=== PATIENT | male | born 1985 | race Caucasian/White ===

== ENCOUNTER 2017-01-25 00:52 | Inpatient (IN) | payer OTHER ==
[~2017-01-25] VITALS: Ht 160 cm; Wt 53.5 kg
[2017-01-25] MEDS ORDERED: LOPERAMIDE HCL 2 MG CAPSULE PO PRN ×2 (17:30)
[2017-01-25] MEDS ORDERED: HYDROXYZINE PAMOATE 25 MG CAPSULE PO PRN (17:30)
[2017-01-25] MEDS ORDERED: MAG HYDROX/AL HYDROX/SIMETH 30 ML LIQUID UDC PO PRN (17:30)
[2017-01-25] MEDS ORDERED: ONDANSETRON ODT 4 MG TAB.RAPDIS SL PRN (17:30)
[2017-01-25] MEDS ORDERED: ONDANSETRON 4 MG/2 ML VIAL IM PRN (17:30)
[2017-01-25] MEDS ORDERED: LORAZEPAM 1 MG TABLET PO PRN ×3 (17:30→18:30)
[2017-01-25] MEDS ORDERED: ACETAMINOPHEN 325 MG TABLET PO PRN (17:30)
[2017-01-25] MEDS ORDERED: DICYCLOMINE HCL 20 MG TABLET PO PRN (17:30)
[2017-01-25] MEDS ORDERED: CLONIDINE HCL 0.1 MG TABLET PO PRN (17:30)
[2017-01-25] MEDS ORDERED: diphenhydrAMINE 50 MG CAPSULE PO PRN (17:30)
[2017-01-25] MEDS ORDERED: BUPRENORPHINE HCL 2 MG TAB.SUBL SL PRN (17:30)
[2017-01-25 17:54] VITALS: BP 117/67
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
[2017-01-25] MEDS ORDERED: AMIT75TA13 PO (18:19)
[2017-01-25] MEDS ORDERED: BUPR300T54 PO (18:19)
[2017-01-25] MEDS ORDERED: ZALE10CA28 PO (18:19)
[2017-01-25] MEDS ORDERED: HYDR-3980 PO (18:19)
[2017-01-25] MEDS ORDERED: LORA1TAB PO (18:19)
[2017-01-25] MEDS ORDERED: METH-406 PO (18:19)
[2017-01-25] MEDS ORDERED: LORAZEPAM 2 MG/1 ML VIAL IM PRN (18:30)
--- NOTE | 2017-01-25 18:34 | NUR ---
SKIN CHECK DONE ON UNIT. A MILD RASH TO TORSO AND VAISHALI NOTED. HE STATES HE THINKS IT IS FROM THE [place]. NO OPEN WOUNDS NOTED. Addendum: 01/25/17 at 1840 by JESUS LINDO RN PT USES A SINGLE POINT CANE FOR CHRONIC LOWER BACK PAIN AND SCIATICA PAIN. HIS GAIT IS STEADY.
[2017-01-25 18:46] LABS: BASOPHILS # (AUTO) 0.1 K/uL (0.0-8.0); BASOPHILS % (AUTO) 0.6 % (0.0-2.0); EOSINOPHILS # (AUTO) 0.2 K/uL (0.0-0.7); EOSINOPHILS % (AUTO) 2.1 % (0.0-7.0); HEMATOCRIT 48.9 % (40-50); HEMOGLOBIN 16.4 G/DL (14.0-18.0); LYMPHOCYTES # (AUTO) 3.2 K/UL (0.8-4.8); LYMPHOCYTES % (AUTO) 36.8 % (20.5-51.5); MEAN CORPUSCULAR HGB CONC 34 g/dL (32.0-37.0); MEAN CORPUSCULAR VOLUME 101.2 FL (82.0-92.0); MONOCYTES # (AUTO) 0.3 K/UL (0.1-1.30); MONOCYTES % (AUTO) 3.9 % (0.0-11.0); NEUTROPHILS # (AUTO) 4.8 K/UL (1.8-8.9); NEUTROPHILS % (AUTO) 56.6 % (38.5-71.5); PLATELET COUNT (AUTO) 196 K/UL (150-450); RED BLOOD CELL COUNT(AUTO) 4.83 MIL/UL (4.7-6.1); WHITE BLOOD COUNT (AUTO) 8.6 K/UL (4.0-11.2)
[2017-01-25 18:51] LABS: *AMPHETAMINE, URINE NEGATIVE (NEGATIVE); *BARBITURATE, URINE NEGATIVE (NEGATIVE); *CANNABINOID, URINE NEGATIVE (NEGATIVE); *COCCAINE, URINE NEGATIVE (NEGATIVE); *OPIATE, URINE POSITIVE (NEGATIVE); *PHENCYCLIDINE SCREEN,URINE NEGATIVE (NEGATIVE)
[2017-01-25 18:54] LABS: ALANINE AMINOTRANSFERASE 19 U/L (16-63); ALKALINE PHOSPHATASE 82 U/L (50-136); ASPARTATE AMINOTRANSFERASE 14 U/L (15-37); BILIRUBIN,TOTAL 0.2 mg/dL (0.2-1.0); CARBON DIOXIDE 27 mmol/L (21-32); CHLORIDE 104 mmol/L (98-107); CREATININE 0.9 mg/dL (0.6-1.3); GLUCOSE 120 mg/dL (74-106); MAGNESIUM 1.9 mg/dL (1.8-2.4); POTASSIUM 3.7 mmol/L (3.5-5.1); TOTAL PROTEIN, SERUM 7.6 g/dL (6.4-8.2); UREA NITROGEN, BLOOD 10 mg/dL (7-18)
[2017-01-25 19:00] LABS: ETHANOL < 3 MG/DL (0-0)
--- NOTE | 2017-01-25 19:00 | NUR ---
Start of Shift Patient Received. Patient is in activities room participating in group activities. Patient is a 31 year old male from [place] arriving to receive treatment for his Opioid Dependence. Per endorsement, verbalizes no known allergies, height noted to 53 and weight of 118. Vitals of 117/67, 90, 98.4, 16, 96%, 8/10. Past medical history noted as Anxiety, Depression, Insomnia, and Chronic Back pain. Home medications reconciled. No history of Seizures. This is patients first time in Treatment. Patient is ambulatory assistance of a cane. All needs attended to promptly. Will continue with admission assessment when patient returns from group meeting.
--- NOTE | 2017-01-25 19:45 | NUR ---
Admission Patient is a 31 year old male from [place], admitted to [facility] to receive treatment for his Opioid and Benzo Dependence. Body Check and skin check rendered prior to arrival to unit. Skin is noted intact. Patient is able to provide Urine drug screen upon arrival to unit. Patient verbalizes no known allergies. Height noted as 53 and weight noted as 118lbs. Patient is ambulatory with use of a cane. Patient verbalizes I alternate the use of the cane either though the week leg is my left leg. Patient is very cooperative with admission assessment and states I just want to be normal again. I dont want to be on these medications anymore. Breathing is even and non labored with no signs of SOB. Vital signs rendered and noted as 108/65, 86, 18, 98.6, 10/10 pain due to left leg. Patient describes pain as sharp and on fire. Left leg noted with mild weakness and right arm noted with mild weakness. No edema noted to BUE or to BLE. Lung sounds clear with no cough noted. Bowel sounds are active in all 4 quadrants. Patient verbalizes past medical history as Anxiety, Depression, insomnia, and Chronic Back Pain and lower left leg pain due to Work Accident. All home medications reconciled. No history of Seizure noted. Patient denies any suicidal ideations. He describes his usage as: 1. Opioids- [place], for the past 5 years, 10-325mg PO 6-8 tabs per day, with last dose 01/26/17 taking 4 tabs for the day. 2. Ativan, for 1 year, 1mg 3 tabs PO per week, with last dose 01/24/17 taking 1mg 3. Sonatas, for 1 year, 10mg PO QHS 2 per week, with last dose 01/24/17 Patient states "a lot of pain, headaches, nausea, vomiting, itching, stomach cramps, diarrhea" Patient lives at home in [place] and is currently unemployed. Admission CIWA noted to be 3 and COWS 7. All information relayed to Dr. Milton. Patient noted with 2100 Dose of Ativan 2mgn for increased anxiety as per MD. PRN medications available for increased signs and symptoms. Will administer medications accordingly. Will continue plan of acre as ordered.
[2017-01-25 20:36] VITALS: BP 108/65
[2017-01-25] MEDS ORDERED: LORAZEPAM 1 MG TABLET PO ONE (21:00)
[2017-01-25] MEDS: KETOROLAC TROMETHAMINE 30 MG INJ IM PRN (21:02)
--- NOTE | 2017-01-25 21:10 | NUR ---
PRN Medication Administration Patient verbalizing increased anxiety and pain 10/10 due to left leg. New order obtained from MD for PRN Toradol injection. Routine dose of Ativan 2mg as well as PRN Toradol administered as per order. Will continue to monitor.
[2017-01-25] MEDS ORDERED: KETOROLAC TROMETHAMINE 30 MG INJ ONE (21:11)
--- NOTE | 2017-01-25 22:00 | NUR ---
PRN Medication Reassessment Patient is in bed, awake, alert and verbally responsive. Patient is able to verbalize The pain has subsided to a tolerable 3/10. PRN Toradol noted to be effective in minimizing pain. Patient is able to verbalize PRN Ativan 2mg was effective in minimizing anxiety as well. Will continue to monitor.
[2017-01-26] MEDS ORDERED: NICOTINE POLACRILEX 4 MG GUM-PK OF TEN BC PRN (00:15)
[2017-01-26] MEDS ORDERED: NICOTINE 14 MG/24HR PATCH TD PRN (00:15)
[2017-01-26 00:29] VITALS: BP 104/57
[2017-01-26 04:09] VITALS: BP 100/59
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
--- NOTE | 2017-01-26 07:31 | NUR ---
End of Shift Patient is in bed sleeping. Breathing even and non labored. Patient is a 31 year old male admitted on 01/25/17 for Opioid Dependence under the care of Dr. Milton. Patient is to start a 5 day Subutex taper this morning at 0900. No known allergies, Full Code, Following a regular diet, placed on fall precautions, and skin noted intact. Past medical history verbalized as Anxiety, Depression, Insomnia, Chronic back pain with left sciatica, Gerd, and history of Hemorrhoids. Patient was given PRN Toradol injection with medication noted to be effective. Last noted CIWA 3. All needs attended to promptly. Will endorse to continue to monitor.
[2017-01-26 08:00] VITALS: BP 106/61
[2017-01-26] MEDS ORDERED: TUBERCULIN,PURIF.PROT.DERIV. 5 TU/0.1 ML TEST ID ONE (09:00)
[2017-01-26] MEDS: FAMOTIDINE 20 MG TABLET PO SCH (11:22)
[2017-01-26] MEDS: BUPRENORPHINE HCL 2 MG TAB.SUBL SL SCH ×4 (11:23→21:19)
[2017-01-26] MEDS: GABAPENTIN 300 MG CAPSULE PO SCH ×2 (11:23→21:17)
[2017-01-26] MEDS: IBUPROFEN 600 MG TABLET PO PRN ×2 (11:23→21:17)
--- NOTE | 2017-01-26 11:25 | NUR ---
PRN Medication Administration Pt c/o Moderated sciatic pain radiating from LLE to lower back with 5/10 pain; PRN Motrin 600mg given as ordered. Will reassess in 1H.
[2017-01-26 12:00] VITALS: BP 106/61
--- NOTE | 2017-01-26 12:20 | NUR ---
Reassessment Pt is resting in room eating lunch and states that pain decreased to 2/10 pain; Motrin is effective. Will cont. to monitor the pt.
[2017-01-26] MEDS: METHOCARBAMOL 750 MG TABLET PO PRN (13:27)
--- NOTE | 2017-01-26 13:30 | NUR ---
PRN Medication Administration Pt is in [address] getting ready to go smoke and c/o muscle stiffness in his lower back with discomfort; PRN Robaxin 750mg given as ordered. Will reassess in 1H.
--- NOTE | 2017-01-26 14:30 | NUR ---
Reassessment Pt is in room resting in bed and states that his muscle tension is relieved and he is more comfortable; Robaxin is effective. Will cont. to monitor the pt.
[2017-01-26 16:00] VITALS: BP 109/64
[2017-01-26] MEDS: MIRALAX 17 GM POWD.PACK PO PRN (17:07)
[2017-01-26] MEDS: KETOROLAC TROMETHAMINE 30 MG INJ IM PRN (17:10)
--- NOTE | 2017-01-26 17:10 | NUR ---
PRN Medication Administration Pt is getting ready to go to cafeteria for dinner and c/o severe sciatic pain 9/10 in LLE; PRN Toradol 30mg inj given as ordered. Will reassess in 1H.
--- NOTE | 2017-01-26 18:10 | NUR ---
Reassessment Pt returns from dinner and smoking break and denies pain in LLE; Toradol is effective. Will cont. to monitor the pt.
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
[2017-01-26 20:00] VITALS: BP 105/61
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
[2017-01-26] MEDS: AMITRIPTYLINE HCL 50 MG TABLET PO SCH (21:18)
[2017-01-26] MEDS: MAGNESIUM HYDROXIDE 30 ML LIQUID UDC PO PRN (21:19)
--- NOTE | 2017-01-26 21:19 | NUR ---
PRN Milk of Magnesia Px complained of constipation for 4 days. MOM 30 ml given PO as PRN med. We'll continue to monitor.
--- NOTE | 2017-01-26 21:19 | NUR ---
PRN Motrin Px complained of LBP radiating to LLE 9/10. With standing orders of Gabapentin and Subutex, Motrin 600 mg/tab, 1 tab given PO as PRN med. We'll continue to monitor.
--- NOTE | 2017-01-26 22:20 | NUR ---
Reassessment of pain Px verbalized the pain lessened from 9/10 to 7/10 but still complains for it. We'll continue to monitor.
[2017-01-27] VITALS: BP 106/69
--- NOTE | 2017-01-27 | NUR ---
COWS and CIWA deferred COWS and CIWA deferred due to px is sleeping, to assess if the px is awake per doctor's order. We'll continue to monitor.
[2017-01-27 04:00] VITALS: BP 102/61
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
[2017-01-27 08:00] VITALS: BP 96/62
[2017-01-27] MEDS: buPROPion XL 150 MG TAB.SR.24H PO SCH (09:56)
[2017-01-27] MEDS: BUPRENORPHINE HCL 2 MG TAB.SUBL SL SCH ×3 (09:57→21:15)
[2017-01-27] MEDS: FAMOTIDINE 20 MG TABLET PO SCH (09:57)
[2017-01-27] MEDS: GABAPENTIN 300 MG CAPSULE PO SCH ×3 (09:57→21:15)
[2017-01-27] MEDS: KETOROLAC TROMETHAMINE 30 MG INJ IM PRN (09:58)
--- NOTE | 2017-01-27 09:58 | NUR ---
PRN Medication Administration Pt c/o no BM x 4 days; PRN Miralax given ast ordered and Dr. Milton is aware. Will cont. to monitor the pt. Addendum: 01/27/17 at 1550 by ALEXIA LARSEN RN Pt c/o sciatic pain 12/22 in LLE; PRN Toradol 30mg inj given as ordered. Will reassess in 1H.
[2017-01-27] MEDS: MIRALAX 17 GM POWD.PACK PO PRN (10:19)
--- NOTE | 2017-01-27 11:00 | NUR ---
Reassessment Pt is in room relaxing and pain 0/10, no BM yet flatus is present at time. Will cont. to monitor the pt.
[2017-01-27 11:07] LABS: HEPATITIS B SURFACE AG Negative (Negative)
[2017-01-27 12:00] VITALS: BP 112/66
[2017-01-27 16:00] VITALS: BP 131/75
[2017-01-27] MEDS: BACLOFEN 10 MG TABLET PO SCH ×2 (16:45→21:14)
[2017-01-27] MEDS: DOCUSATE SODIUM 250 MG CAPSULE PO SCH ×2 (16:46→21:14)
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
[2017-01-27 20:00] VITALS: BP 134/86
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
--- NOTE | 2017-01-27 21:14 | NUR ---
PRN Robaxin, Colace and MOM Px complained of pain on both shoulders, low back and LLE 7/10 and constipation for 5 days already. Robaxin 750 mg/tab, 1 tab; Milk of Magnesia 30 ml; Colace 250mg/cap, 1 cap given PO as PRN meds. We'll continue to monitor.
[2017-01-27] MEDS: MAGNESIUM HYDROXIDE 30 ML LIQUID UDC PO PRN (21:15)
[2017-01-27] MEDS: AMITRIPTYLINE HCL 50 MG TABLET PO SCH (21:15)
[2017-01-27] MEDS: METHOCARBAMOL 750 MG TABLET PO PRN (21:15)
--- NOTE | 2017-01-27 22:15 | NUR ---
Pain reassessment Px verbalized that the pain decreased to 5/10. NO BM yet as of the moment. We'll continue to monitor.
[2017-01-28] VITALS: BP 122/74
--- NOTE | 2017-01-28 | NUR ---
COWS and CIWA deferred COWS and CIWA deferred due to the px is sleeping, to be assess if the px is awake per doctor's order. We'll continue to monitor.
[2017-01-28 04:00] VITALS: BP 110/69
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
--- NOTE | 2017-01-28 07:27 | NUR ---
Start of Shift Notes: Received patient in his room. Alert and verbally responsive. Oriented x 4. Easily arousable when his name is called. No changes in LOC noted. Respirations even and unlabored. No SOB noted. Skin warm and dry to touch. Abdomen soft and non-distended. BS (+) in all 4 quadrants. No complains of N/V/D or constipation noted. Bladder non-distended. No complains of dysuria noted. Voids independently. Ambulatory ad ji with steady gait. Patient is a 31 year old male admitted for opiate and BZO dependence who was placed on a 5-day Subutex taper as ordered. No adverse reactions noted. Prior to admission, patient was using 6-8 tabs of [place] 10-325mg PO, 1 mg of Ativan 3x/wk, 10 mg PO QHS Sonatas. NKA. FULL CODE. Regular diet. On fall and seizure precautions. Has past medical hx of anxiety, depression, insomonia, chronic back pain with sciatica. On fall and seizure precautions. Educated patient on his current plan of care for the day and his medication regimen. Encouraged oral fluid intake and encouraged group participation to learn new skills to prevent relapse. Will continue to monitor closely.
[2017-01-28 08:00] VITALS: BP 108/61
[2017-01-28] MEDS ORDERED: BUPRENORPHINE HCL 2 MG TAB.SUBL SL SCH ×2 (09:00→15:00)
[2017-01-28] MEDS: BACLOFEN 10 MG TABLET PO SCH (09:03)
[2017-01-28] MEDS: GABAPENTIN 300 MG CAPSULE PO SCH (09:03)
[2017-01-28] MEDS: FAMOTIDINE 20 MG TABLET PO SCH (09:03)
--- NOTE | 2017-01-28 09:03 | NUR ---
Toradol 30 mg IM given: Patient noted with complain of 9/10 generalized pain related to withdrawal symptoms and sciatica. Non-pharmacological interventions were ineffective. Medicated patient with Toradol 30 mg IM as ordered to patient's left deltoid. Will monitor for effectiveness.
[2017-01-28] MEDS: KETOROLAC TROMETHAMINE 30 MG INJ IM PRN (09:04)
[2017-01-28] MEDS: buPROPion XL 150 MG TAB.SR.24H PO SCH (09:04)
--- NOTE | 2017-01-28 09:33 | NUR ---
Re-assessment: Per patient, PRN Toradol was effective in reducing pain. PL 4/10.
--- NOTE | 2017-01-28 11:30 | NUR ---
MD Communication: Dr. Milton informed of patient's complains of constipation. Per MD, he will enter in orders. Also, MD modified patient's Subutex taper today due to s/s of withdrawal.
[2017-01-28 12:00] VITALS: BP 122/65
[2017-01-28] MEDS: BUPRENORPHINE HCL 2 MG TAB.SUBL SL SCH ×3 (12:56→21:00)
[2017-01-28] MEDS: PSYLLIUM SEED PACKET PO SCH (12:58)
[2017-01-28] MEDS ORDERED: NAPROXEN 500 MG TABLET PO ONE (13:00)
[2017-01-28] MEDS ORDERED: MAGNESIUM CITRATE 296 ML BOTTLE PO ONE (13:00)
--- NOTE | 2017-01-28 13:03 | NUR ---
OT Metamucil/Mag Citrate/Naproxen PO given: Orders received for the above meds due to patient's complain of constipation. Education provided. Will monitor for effectiveness.
[2017-01-28] MEDS: ACETAMINOPHEN 325 MG TABLET PO SCH ×2 (14:07→20:58)
[2017-01-28] MEDS: BACLOFEN 20 MG TABLET PO SCH ×2 (14:08→20:58)
[2017-01-28] MEDS: GABAPENTIN 400 MG CAPSULE PO SCH ×2 (14:08→20:58)
[2017-01-28 16:00] VITALS: BP 125/88
--- NOTE | 2017-01-28 16:27 | NUR ---
TRINITY/MAXIMILIANO Deferred: Patient is seen laying in bed with eyes closed. Breathing even and unlabored. No SOB noted. TRINITY/CIJEREMY Deferred at this time. Addendum: 01/28/17 at 1627 by BERNADINE HAMMER LVN Amended: Links added.
--- NOTE | 2017-01-28 17:55 | NUR ---
Subutex 2 mg SL at 1700 held: Patient is seen laying in bed with eyes closed. Breathing even and unlabored. Subutex 2 mg SL held at this time.
--- NOTE | 2017-01-28 18:50 | NUR ---
End of Shift Notes: Patient continues to be on a modified 5-day Subutex taper as ordered. No adverse reactions noted. VS monitored closely. No significant abnormalities noted. Withdrawal symptoms were closely monitored. Initial COWS 7/CIWA 2, patient presented with body aches, anxiety, fatigue and gross tremors. Medicated patient with Toradol 30 mg IM as ordered for 9/10 pain with help after 30 minutes. Last COWS 4/CIWA 1 at 1200. COWS/CIWA at 1600 deferred due to patient was sleeping. Subutex 2 mg SL at 1700 held. Complained of constipation during the shift. MD Milton made aware. Medicated patient with Metamucil, Mag Citrate as ordered with results pending. Patient participated in group and activities despite his withdrawal symptoms. Encouraged oral fluid intake to aid in the detox process. All needs met and attended. Will continue to monitor.
[2017-01-28 20:00] VITALS: BP 111/70
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
[2017-01-28] MEDS: DOCUSATE SODIUM 100 MG CAPSULE PO SCH (20:58)
[2017-01-28] MEDS: NAPROXEN 500 MG TABLET PO SCH (20:58)
[2017-01-28] MEDS: AMITRIPTYLINE HCL 50 MG TABLET PO SCH (20:59)
[2017-01-28] MEDS: MAGNESIUM HYDROXIDE 30 ML LIQUID UDC PO PRN (21:00)
--- NOTE | 2017-01-28 21:00 | NUR ---
PRN Milk of Magnesia Px pass BM today in AM but small amount. Px is constipated for more than 5 days. Milk of Magnesia 30 cc given PO as PRN med. We'll continue to monitor.
[2017-01-28] MEDS ORDERED: HYDROCORTISONE 1% CREAM 30 GM TUBE TP ONE ×2 (22:15→22:35)
--- NOTE | 2017-01-28 22:15 | NUR ---
PRN Hydrocortisone cream and Vistaril Px complained of insect-like bite lump on his anterior forearm, characterized with redness and tenderness. Dr. Milton ordered Hydrocortisone cream to apply PRN BID. Vistaril 25mg/tab, 1 tab given PO as PRN med. We'll continue to monitor.
[2017-01-29] VITALS: BP 116/67
--- NOTE | 2017-01-29 04:00 | NUR ---
VS refused Px refused the VS taking at this time. Respirations are even and unlabored at 13 cpm. We'll continue to monitor.
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
--- NOTE | 2017-01-29 07:49 | NUR ---
BEGINNING OF SHIFT Patient endorsement report received from mortgage loan funder nurse, all pertinent information discussed. Patient is a 31 year old Male admitted on: 01/25/2017 with admitting Dx:Opiate /BZO dependence, And substance use of:sonatas. Patient currently under close observation, continues on 5 day Subutex taper as ordered, and is scheduled to begin day 4 of taper. Per mortgage loan funder patient slept for 6 hours, received PRN: Motrin, Naproxen and Tylenol. Patient with last ciwa score of: 3 and last cow score of: 6. Patient received awake, alert and oriented x4, patient educated regarding plan of care and medication regimen for the day with good verbal understanding. Safety measure sin place. call light kept with in reach, will continue to monitor.
[2017-01-29 08:15] VITALS: BP 103/67
[2017-01-29] MEDS: NAPROXEN 500 MG TABLET PO SCH ×2 (08:45→21:09)
[2017-01-29] MEDS: BACLOFEN 20 MG TABLET PO SCH ×3 (08:45→21:09)
[2017-01-29] MEDS: GABAPENTIN 400 MG CAPSULE PO SCH ×3 (08:45→21:09)
[2017-01-29] MEDS: ACETAMINOPHEN 325 MG TABLET PO SCH ×3 (08:45→21:09)
[2017-01-29] MEDS: FAMOTIDINE 20 MG TABLET PO SCH (08:46)
[2017-01-29] MEDS: BUPRENORPHINE HCL 2 MG TAB.SUBL SL SCH ×3 (08:46→21:09)
[2017-01-29] MEDS: buPROPion XL 150 MG TAB.SR.24H PO SCH (08:46)
--- NOTE | 2017-01-29 08:49 | NUR ---
ADMINISTRATION OF PNA/FLU VACCINE Patient consented for pneumo vaccine and flu vaccine. administered pnemovaccine to left deltoid, and flu vaccine to right deltoid, injections well tolerated, will continue to monitor.
[2017-01-29] MEDS: DOCUSATE SODIUM 100 MG CAPSULE PO SCH ×2 (08:51→21:09)
[2017-01-29] MEDS: PSYLLIUM SEED PACKET PO SCH (08:51)
[2017-01-29] MEDS ORDERED: INFLUENZA VACCINE 2017-2018 0.5 ML DISP.SYRIN IM ONE (09:00)
[2017-01-29] MEDS ORDERED: PNEUMOCOCCAL 23-VAL P-SAC VAC 0.5 ML VIAL IM ONE (09:00)
[2017-01-29] MEDS ORDERED: HYDROCORTISONE 1% CREAM 30 GM TUBE TP PRN (09:46)
--- NOTE | 2017-01-29 10:00 | NUR ---
POSITIVE PPD Patient noted with right arm positive ppd, noted with 10mm induration, red and raised, notified Dr. Milton with new orders for CXR, as per patient verbalized received BCG vaccine. MD aware, patient afebrile, no cough or congestion noted. lungs clear upon auscultation, will continue to monitor.
--- NOTE | 2017-01-29 10:00 | NUR ---
Activity Group Note: Attempt made for group participation. Client refused. Will attempt when time permits.
[2017-01-29 13:03] VITALS: BP 104/60
--- NOTE | 2017-01-29 13:45 | NUR ---
Activity Group Note: Client participated in "[employer]" activity. Intervention goal was to increase task focus and leisure skills. Client appeared to have a calm affect. Mood congruent. Client was able to teach certified social workers in health care the rules of the activity, as well as remain focused throughout. He stated that he "really enjoys this game, even though he just learned it yesterday." Client was unable to participate for entire period, as he was called back to his room for medication. Client did not return to activity. Client benefits from leisure activities, SW will continue to encourage participation.
[2017-01-29 17:10] VITALS: BP 119/71
--- NOTE | 2017-01-29 19:05 | NUR ---
BEGINNING OF SHIFT Patient alert and oriented x4, vital signs were stable during shift. Patient compliant with therapeutic plan of care. Patient received flu and PNA vaccine during shift, well tolerated. Patients continues under close observation. patient with admitting Dx: opiate/BZO dependence. currently with ongoing taper of Subutex 5 day, currently on day 4 of taper, well tolerated, no ASE noted, continues under close observation. During shift patient had CXR done for positive PPD, MD aware of results. During shift patient had PT eval, as per PT may ambulate with FWW With nursing supervision. 0900 presented with: c/o chills, severe bone and joint aches, stomach cramps, tremors that can be felt but not seen, irritable, and anxiety with cow score of: 7, ciwa score of: 4; 1300 assessment patient presented with: heart rate of 99, c/o chills, mild bone and joint aches, tremors that can be felt but not seen, mild anxiety with cow score of: 6 and ciwa score of: 2; 1700 patient presented with: heart rate of 101, c/o chills, mild bone and joint aches, tremors that can be felt but not seen, mild anxiety with cow score of: 7 and ciwa score of: 2. Patient encouraged adequate PO fluid intake as tolerated. Patient encouraged to attend group therapies/sessions to learn new coping skills to prevent relapse. Denies SI/HI. safety measures in place. call light kept with in reach, patient endorsed to shift mechanic nurse, all pertinent information discussed. will continue to monitor.
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
[2017-01-29 20:00] VITALS: BP 120/74
[2017-01-29] MEDS: AMITRIPTYLINE HCL 50 MG TABLET PO SCH (21:09)
[2017-01-30] VITALS: BP 115/68
--- NOTE | 2017-01-30 | NUR ---
COWS/CIWA DEFERRED COWS and CIWA deferred d/t pt lying in bed with eyes closed noted to be asleep. Respirations 16, breathing is even and unlabored. Safety measures in place. Will monitor.
--- NOTE | 2017-01-30 04:00 | NUR ---
VITALS REFUSED, COWS/CIWA DEFERRED 0400 vitals refused. COWS and CIWA deferred d/t pt lying in bed with eyes closed noted to be asleep. Respirations 16, breathing even and unlabored. Safety measures in place. Will monitor.
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
--- NOTE | 2017-01-30 07:37 | NUR ---
BEGINNING OF SHIFT Patient endorsement report received from casino shift manager nurse, all pertinent information discussed. Patient is a 31 year old Male admitted on: 01/25/2017 with admitting Dx:Opiate /BZO dependence, And substance use of:sonatas. Patient currently under close observation, continues on 5 day Subutex taper as ordered, and is scheduled to begin day 4 of taper. Per casino shift manager patient slept for 7 hours, received no PRN medications. Patient with last ciwa score of: 5 and last cow score of: 9. Patient received awake, alert and oriented x4, patient educated regarding plan of care and medication regimen for the day with good verbal understanding. Safety measures in place. call light kept with in reach, will continue to monitor.
[2017-01-30 08:48] VITALS: BP 113/66
[2017-01-30] MEDS: GABAPENTIN 400 MG CAPSULE PO SCH ×3 (08:49→21:44)
[2017-01-30] MEDS: ACETAMINOPHEN 325 MG TABLET PO SCH ×3 (08:49→21:44)
[2017-01-30] MEDS: buPROPion XL 150 MG TAB.SR.24H PO SCH (08:49)
[2017-01-30] MEDS: NAPROXEN 500 MG TABLET PO SCH ×2 (08:49→21:45)
[2017-01-30] MEDS: BACLOFEN 20 MG TABLET PO SCH ×3 (08:49→21:44)
[2017-01-30] MEDS: DOCUSATE SODIUM 100 MG CAPSULE PO SCH ×2 (08:49→21:43)
[2017-01-30] MEDS: FAMOTIDINE 20 MG TABLET PO SCH (08:49)
[2017-01-30] MEDS: PSYLLIUM SEED PACKET PO SCH (08:50)
[2017-01-30] MEDS ORDERED: BUPRENORPHINE HCL 2 MG TAB.SUBL SL SCH ×2 (09:00)
--- NOTE | 2017-01-30 13:45 | NUR ---
Activity Group Note: Client participated in "[place]" activity. Intervention goal was to increase task focus and leisure activities. Client appeared to have a calm and cooperative affect. Mood congruent. He arrived early to group and suggested the activity for the day. Client stated, "Any excuse to get out of my room, and this is fun." He was able to focus on task and initiate conversation with peers and social media content manager. Client benefits from leisure activities and social interaction with peers. Sash Installer will continue to encourage participation.
[2017-01-30 13:53] VITALS: BP 111/72
[2017-01-30] MEDS ORDERED: NORMAL SALINE NASAL 45 ML BOTTLE NS PRN (14:00)
[2017-01-30] MEDS: BUPRENORPHINE HCL 2 MG TAB.SUBL SL SCH ×2 (14:16→21:46)
[2017-01-30 17:00] VITALS: BP 115/69
--- NOTE | 2017-01-30 18:55 | NUR ---
END OF SHIFT Patient alert and oriented x4, vital signs were stable during shift. Patient compliant with therapeutic plan of care. Patients continues under close observation. patient with admitting Dx: opiate/BZO dependence. currently with ongoing taper of Subutex 5 day, currently on day 5 of taper, well tolerated, no ASE noted, continues under close observation. 0900 presented with:Tremors that can be felt but not seen, fine tremors, heart rate of 98, barely sweating, anxiety, mild agitation, and very mild pins and needles to bilateral hands, with ciwa score of: 8 and cow score of: 9; 1300 assessment patient presented with: Tremors that can be felt but not seen, fine tremors, heart rate of 96, barely sweating, anxiety, mild agitation, and very mild pins and needles to bilateral hands, with ciwa score of: 8 and cow score of: 9. 1700 assessment patient presented with: Tremors that can be felt but not seen, fine tremors, heart rate of 98, barely sweating, anxiety, mild agitation, and very mild pins and needles to bilateral hands, with ciwa score of: 8 and cow score of: 9. Patient encouraged adequate PO fluid intake as tolerated. Received no PRNs during shift. Patient encouraged to attend group therapies/sessions to learn new coping skills to prevent relapse. Denies SI/HI. safety measures in place. call light kept with in reach, patient endorsed to night supervisor nurse, all pertinent information discussed. will continue to monitor.
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
[2017-01-30 20:00] VITALS: BP 128/71
[2017-01-30] MEDS: AMITRIPTYLINE HCL 50 MG TABLET PO SCH (21:43)
[2017-01-31] MEDS: BACLOFEN 20 MG TABLET PO SCH ×3 (09:00→20:29)
[2017-01-31] MEDS: buPROPion XL 150 MG TAB.SR.24H PO SCH (09:00)
[2017-01-31] MEDS: ACETAMINOPHEN 325 MG TABLET PO SCH ×3 (09:00→20:29)
[2017-01-31] MEDS ORDERED: BUPRENORPHINE HCL 2 MG TAB.SUBL SL SCH (09:00)
[2017-01-31] MEDS ORDERED: PSYLLIUM SEED PACKET PO PRN (09:00)
[2017-01-31] MEDS: FAMOTIDINE 20 MG TABLET PO SCH (09:00)
[2017-01-31] MEDS: NAPROXEN 500 MG TABLET PO SCH ×2 (09:00→20:30)
[2017-01-31] MEDS: DOCUSATE SODIUM 100 MG CAPSULE PO SCH ×2 (09:00→20:28)
[2017-01-31] MEDS ORDERED: METHYL SALICYLATE/MENTHOL CREAM 28 GM TUBE TOP PRN (11:30)
--- NOTE | 2017-01-31 11:48 | NUR ---
0900 MEDICATION ADMINISTRATION all scheduled 0900 medications were administered as ordered, per [facility] downtime. refer to paper MAR record.
[2017-01-31 13:13] VITALS: BP 116/73
--- NOTE | 2017-01-31 13:45 | NUR ---
Activity Group Note: Client participated in "[place]" activity. Intervention goal was to increase task focus and leisure skills. Client arrived 20 minutes late to activity group, but was willing to participate. He appeared to have a euthymic mood with appropriate affect. Client initiated conversation with peers and director social service. He had a coherent and goal-directed thought process. Client was able to understand and complete the task. This is client's third consecutive time going to the activity group with this promotion writer. Client expressed that he "likes learning new things, and this is a great way to do that." Client benefits from leisure activities and social interaction with his peers. ordnance equipment worker will continue to encourage participation in activity group.
[2017-01-31] MEDS: GABAPENTIN 300 MG CAPSULE PO SCH ×2 (14:47→20:28)
[2017-01-31 17:00] VITALS: BP 132/75
--- NOTE | 2017-01-31 19:13 | NUR ---
END OF SHIFT Patient alert and oriented x4, vital signs were stable during shift. Patient compliant with therapeutic plan of care. Patients continues under close observation. patient with admitting Dx: opiate/BZO dependence. currently with ongoing taper of Subutex 5 day, currently on day 5 of taper, well tolerated, no ASE noted, patient completed tapers, and is scheduled to be discharged tomorrow morning. noted self motivated towards sobriety. 0900 presented with:stomach cramps, heart rate of 86, severe bone and joint aches, nasal stuffiness, mild anxiety, tremors that can be felt but not seen, and mild head fullness with cow score of: 8 and ciwa score of: 5; 1300 assessment patient presented with: heart rate of 100, severe bone and joint aches, tremors that can be felt but not seen, irritable, anxiety, with cow score of: 6 and ciwa score of: 5 1700 assessment patient presented with: heart rate of 98, mild bone and joint aches, tremors that can be felt but not seen, and mild anxiety with cow score of: 4 and ciwa score of: 2. Patient encouraged adequate PO fluid intake as tolerated. Received no PRNs during shift. Patient encouraged to attend group therapies/sessions to learn new coping skills to prevent relapse. Denies SI/HI. safety measures in place. call light kept with in reach, patient endorsed to shift mgr nurse, all pertinent information discussed. will continue to monitor.
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
[2017-01-31 20:00] VITALS: BP 135/77
[2017-01-31] MEDS: AMITRIPTYLINE HCL 50 MG TABLET PO SCH (20:27)
--- NOTE | 2017-02-01 | NUR ---
VITALS REFUSED, COWS and CIWA DEFERRED 0000 vitals refused. COWS and CIWA deferred d/t pt lying in bed with eyes closed noted to be asleep. Respirations 16, breathing even and unlabored. Safety measures in place. Will monitor.
[2017-02-01] MEDS ORDERED: ACET325T53 PO (01:37)
[2017-02-01] MEDS ORDERED: NICO4GUM38 BC (01:37)
[2017-02-01] MEDS ORDERED: FAMO20TA8 PO (01:37)
[2017-02-01] MEDS ORDERED: HYDR-3895 PO (01:37)
[2017-02-01] MEDS ORDERED: GABA-534 PO (01:37)
[2017-02-01] MEDS ORDERED: DOCU100C36 PO (01:37)
[2017-02-01] MEDS ORDERED: METH28OI2 TOP (01:37)
[2017-02-01] MEDS ORDERED: DICY20TA28 PO (01:37)
[2017-02-01] MEDS ORDERED: BACL20TA PO (01:37)
[2017-02-01] MEDS ORDERED: NAPR500T3 PO (01:37)
--- NOTE | 2017-02-01 04:00 | NUR ---
VITALS REFUSED, COWS and CIWA DEFERRED 0400 vitals refused. COWS and CIWA deferred d/t pt lying in bed with eyes closed noted to be asleep. Respirations 16, breathing even and unlabored. Safety measures in place. Will monitor.
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
--- NOTE | 2017-02-01 07:30 | NUR ---
start of shift note: received pt from assembler 1st shift nurse, pt is in stable condition no s/s of pain or discomfort. no s/s of withdrawal. pt teaching administered and pt verbalized understanding. pt's personal belongings were returned. pt will be transferred to [facility] via [facility] car
[2017-02-01] MEDS: ACETAMINOPHEN 325 MG TABLET PO SCH (08:36)
[2017-02-01] MEDS: buPROPion XL 150 MG TAB.SR.24H PO SCH (08:36)
[2017-02-01] MEDS: NAPROXEN 500 MG TABLET PO SCH (08:36)
[2017-02-01] MEDS: FAMOTIDINE 20 MG TABLET PO SCH (08:36)
[2017-02-01] MEDS: DOCUSATE SODIUM 100 MG CAPSULE PO SCH (08:36)
[2017-02-01] MEDS: BACLOFEN 20 MG TABLET PO SCH (08:36)
[2017-02-01] MEDS: GABAPENTIN 300 MG CAPSULE PO SCH (08:36)
== END 2017-02-01 09:50 | disposition other institution (70) | DRG 895 ==
LOC: SRC 16:45
PROVIDERS: ADMIT Internal Medicine; ATTEND Internal Medicine
PROC: HZ2ZZZZ Detoxification Services for Substance Abuse Treatment (ICD-10-PCS; principal; 2017-01-25)
PROC: HZ41ZZZ Group Counseling for Substance Abuse Treatment, Behavioral (ICD-10-PCS; 2017-01-26)
DX: F11.229 Opioid dependence with intoxication, unspecified (principal); F33.2 Major depressive disorder, recurrent severe without psychotic features; G47.00 Insomnia, unspecified; M54.42 Lumbago with sciatica, left side; G89.29 Other chronic pain; K27.7 Chronic peptic ulcer, site unspecified, without hemorrhage or perforation; K59.03 Drug induced constipation; K64.9 Unspecified hemorrhoids; F17.210 Nicotine dependence, cigarettes, uncomplicated; Z82.49 Family history of ischemic heart disease and other diseases of the circulatory system; F41.9 Anxiety disorder, unspecified; R76.11 Nonspecific reaction to tuberculin skin test without active tuberculosis; R73.9 Hyperglycemia, unspecified; M25.512 Pain in left shoulder; F13.90 Sedative, hypnotic, or anxiolytic use, unspecified, uncomplicated
CPT/HCPCS: 36415; 70030-TC; 71010; 80307; 80361; 83735; 85025; 86580; 86592; 86705; 86803; 87340; 87806; 90686; 90732; A4663; G0480; J1885